=== PATIENT | female | born 1965 | race Two or more races ===

== ENCOUNTER → 2018-01-07 | Outpatient (CLI) | payer BC ==
[~2018-01-07] MED LIST: CHOL20002 PO; CHOL40002 PO; CLOT100T PO; CYAN100072 PO; CYCL-259 PO; ERGO500040 PO; FLUC200T4 PO; GABA-826 PO; HYDR-3237 PO; HYDR-3307 PO; HYDROCHLOROTHIAZIDE PO; LOSARTAN/POTASSIUM PO; NAPR-685 PO; OXYC-302 PO; SENN1TAB67 PO; [UNRECOGNIZED DRUG - OTHER] PO
[2018-01-07 10:11] LABS: BASOPHILS # (AUTO) 0.02 x10^3/uL (0-0.1); BASOPHILS % (AUTO) 0 % (0-1); EOSINOPHILS # (AUTO) 0.07 x10^3/uL (0-0.4); EOSINOPHILS % (AUTO) 1 % (1-7); LYMPHOCYTES # (AUTO) 2.11 x10^3/uL (1-3.4); LYMPHOCYTES % (AUTO) 36 % (22-44); MD NO; MEAN CORPUSCULAR HGB CONC 33.8 g/dL (32.4-35.8); MEAN CORPUSCULAR VOLUME 97.6 fL (80-100); MEAN PLATELET VOLUME 9.1 fL (7.4-10.4); MONOCYTES % (AUTO) 5 % (2-9); NEUTROPHILS # (AUTO) 3.32 x10^3/uL (1.8-6.8); NEUTROPHILS % (AUTO) 57 % (42-75); PLATELET COUNT 248 x10^3/uL (130-400); RED BLOOD COUNT 4.01 x10^6/uL (3.82-5.3); RED CELL DISTRIBUTION WIDTH 13.3 % (9.6-15.2)
[2018-01-07 10:13] LABS: MICROSCOPIC NOT IND
[2018-01-07 10:15] LABS: CULTURE INDICATED? NO
[2018-01-07 10:24] LABS: ALANINE AMINOTRANSFERASE 19 U/L (12-78); ANION GAP 5 mmol/L (5-15); CALCIUM 8.2 mg/dL (8.5-10.1); CHLORIDE 107 mmol/L (98-107); CREATININE 0.64 mg/dL (0.55-1.02)
[2018-01-07 10:26] LABS: ALKALINE PHOSPHATASE 61 U/L (45-117); BILIRUBIN,TOTAL 0.3 mg/dL (0.2-1.0); TOTAL PROTEIN 7.5 g/dL (6.4-8.2)
[2018-01-07 10:28] LABS: PROTHROMBIN TIME 10.3 Seconds (9.6-11.5)
== END | disposition home or self-care (01) ==
LOC: STAR 09:16
PROVIDERS: ATTEND Neurological Surgery
DX: Z01.818 Encounter for other preprocedural examination (principal); M48.062 Spinal stenosis, lumbar region with neurogenic claudication
CPT/HCPCS: 36415; 71046; 80053; 81003; 85025; 85610; 85730; 93005

== ENCOUNTER 2018-01-20 05:42 | Inpatient (IN) | payer BC ==
[~2018-01-20] VITALS: Ht 152.4 cm; Wt 56.7 kg
[~2018-01-20 05:42] MED LIST changes: -CHOL20002 PO; +CHOL200052 PO
[2018-01-20] MEDS ORDERED: LACTATED RINGERS 1,000 ML IV SCH (06:07)
[2018-01-20] MEDS ORDERED: GABAPENTIN 300 MG CAPSULE PO ONE (07:00)
[2018-01-20] MEDS ORDERED: ACETAMINOPHEN 500 MG TABLET PO ONE (07:00)
[2018-01-20] MEDS ORDERED: BACITRACIN 50,000 UNIT ONE (07:02)
[2018-01-20] MEDS ORDERED: THROMBIN 5,000 UNIT VIAL TP ONE (07:02)
[2018-01-20] MEDS ORDERED: BUPIVACAINE/PF-EPI 0.25% 1:200K ONE (07:02)
[2018-01-20] MEDS ORDERED: FENTANYL PF 250 MCG/5ML ONE (07:06)
[2018-01-20] MEDS ORDERED: DEXAMETHASONE 4 MG/ML, 1ML ONE (08:27)
[2018-01-20] MEDS ORDERED: CEFAZOLIN 1,000 MG ONE (08:27)
[2018-01-20] MEDS ORDERED: SUCCINYLCHOLINE 20 MG/ML, 10ML ONE (08:27)
[2018-01-20] MEDS ORDERED: PROPOFOL 10 MG/ML, 20ML ONE (08:27)
[2018-01-20] MEDS ORDERED: ROCURONIUM 10MG/ML,5ML ONE (08:27)
[2018-01-20] MEDS ORDERED: ONDANSETRON 2MG/ML, 2ML ONE (08:27)
[2018-01-20] MEDS ORDERED: NEOSTIGMINE 1 MG/ML, 10ML ONE (08:27)
[2018-01-20] MEDS ORDERED: GLYCOPYRROLATE 0.2MG/1ML, 5ML ONE (08:27)
[2018-01-20] MEDS ORDERED: LABETALOL 5MG/ML, 20ML IV PRN (09:00)
[2018-01-20] MEDS ORDERED: EPHEDRINE 50 MG/ML, 1ML IM PRN (09:00)
[2018-01-20] MEDS ORDERED: PROCHLORPERAZINE 5 MG/ML, 2ML IV PRN (09:00)
[2018-01-20] MEDS ORDERED: MEPERIDINE/PF 25MG/0.5ML IVPush PRN (09:00)
[2018-01-20] MEDS ORDERED: DIPHENHYDRAMINE 50 MG/ML, 1ML IVPush PRN ×2 (09:00→09:30)
[2018-01-20] MEDS ORDERED: OXYcodone 5 MG/5 ML ORAL.SOL UDC ONE (09:14)
[2018-01-20] MEDS ORDERED: FENTANYL PF 100 MCG/2ML ONE (09:14)
[2018-01-20] MEDS: FENTANYL PF 100 MCG/2ML IV PRN ×2 (09:16→09:21)
[2018-01-20] MEDS ORDERED: PHARMACY MAY ADJ FOR RENAL FX MC PRN (09:30)
[2018-01-20] MEDS ORDERED: BISACODYL 10 MG SUPP PR PRN (09:30)
[2018-01-20] MEDS ORDERED: PROMETHAZINE 25 MG/ML, 1ML IM PRN (09:30)
[2018-01-20] MEDS ORDERED: ONDANSETRON 2MG/ML, 2ML IVPush PRN (09:30)
[2018-01-20] MEDS ORDERED: MAGNESIUM HYDROXIDE 8%, 30ML UDC PO PRN (09:30)
[2018-01-20] MEDS ORDERED: HYDROcodone/APAP 10/325 MG TABLET PO PRN (09:30)
[2018-01-20] MEDS: OXYcodone 5 MG/5 ML ORAL.SOL UDC PO PRN ×3 (09:31→17:45)
[2018-01-20] MEDS ORDERED: CYCLOBENZAPRINE 10 MG TABLET ONE (09:34)
[2018-01-20] MEDS ORDERED: HYDROmorphone 2 MG/ML, 1ML ONE (09:35)
[2018-01-20] MEDS: CYCLOBENZAPRINE 10 MG TABLET PO PRN ×2 (09:37→23:44)
[2018-01-20] MEDS: HYDROmorphone 1 MG/ML, 1ML IV PRN ×4 (09:38→10:06)
[2018-01-20] MEDS ORDERED: CEFAZOLIN PMX 1GM/50ML 50 ML IVPB SCH (11:00)
[2018-01-20] MEDS: NS + 20MEQ KCL 1,000 ML IV SCH (12:42)
[2018-01-20 14:00] VITALS: BP 120/69
[2018-01-20] MEDS: CEFAZOLIN PMX 1GM/50ML 50 ML IVPB SCH (17:45)
[2018-01-20 19:29] VITALS: BP 111/64
[2018-01-20] MEDS: SODIUM CHLORIDE FLUSH 10ML SYR IVF SCH (20:51)
[2018-01-21 00:04] VITALS: BP 101/58
[2018-01-21] MEDS: CEFAZOLIN PMX 1GM/50ML 50 ML IVPB SCH (00:18)
[2018-01-21] MEDS: NS + 20MEQ KCL 1,000 ML IV SCH ×2 (01:57→15:35)
[2018-01-21 04:18] VITALS: BP 115/71
[2018-01-21 07:47] VITALS: BP 91/51
[2018-01-21] MEDS: SODIUM CHLORIDE FLUSH 10ML SYR IVF SCH ×2 (09:00→21:00)
[2018-01-21] MEDS: SENNA/DOCUSATE TABLET PO SCH (09:04)
[2018-01-21] MEDS: OXYcodone/APAP 10/325MG TABLET PO PRN ×4 (09:04→23:25)
[2018-01-21 13:45] VITALS: BP 89/50
[2018-01-21 18:00] VITALS: BP 87/50
[2018-01-21] MEDS: CYCLOBENZAPRINE 10 MG TABLET PO PRN (18:35)
[2018-01-21 18:55] VITALS: BP 107/63
[2018-01-21] MEDS: MEPERIDINE/PF 100 MG/ML IM PRN ×3 (20:29→21:33)
[2018-01-22 02:07] VITALS: BP 100/63
[2018-01-22] MEDS: MEPERIDINE/PF 100 MG/ML IM PRN (02:14)
[2018-01-22] MEDS: NS + 20MEQ KCL 1,000 ML IV SCH (03:27)
[2018-01-22] MEDS: CYCLOBENZAPRINE 10 MG TABLET PO PRN ×2 (04:15→12:58)
[2018-01-22 07:32] VITALS: BP 106/69
[2018-01-22] MEDS: SENNA/DOCUSATE TABLET PO SCH (07:43)
[2018-01-22] MEDS: OXYcodone/APAP 10/325MG TABLET PO PRN ×3 (07:43→16:23)
[2018-01-22] MEDS: SODIUM CHLORIDE FLUSH 10ML SYR IVF SCH (07:44)
[2018-01-22] MEDS ORDERED: KETOROLAC 30 MG/1 ML IVPush SCH (09:00)
[2018-01-22 13:42] VITALS: BP 84/53
[2018-01-22 15:16] VITALS: BP 115/65
[2018-01-22] MEDS ORDERED: OXYC-307 PO (16:36)
[2018-01-22] MEDS ORDERED: CYCL5TAB PO (16:36)
[2018-01-22] MEDS ORDERED: POLY119P4 PO (16:38)
== END 2018-01-22 17:03 | disposition home or self-care (01) | DRG 517 ==
LOC: OUT 05:42 → ORIP 09:05 → OBSVTOIN 09:05 → 4NOR 10:32 → DCLOUNGE 01-22 16:40
PROVIDERS: ADMIT Neurological Surgery; ATTEND Neurological Surgery
PROC: 01NR0ZZ Release Sacral Nerve, Open Approach (ICD-10-PCS; 2018-01-20)
PROC: 01NB0ZZ Release Lumbar Nerve, Open Approach (ICD-10-PCS; principal; 2018-01-20 07:30)
DX: M48.061 Spinal stenosis, lumbar region without neurogenic claudication (principal); Z88.6 Allergy status to analgesic agent
CPT/HCPCS: 72100; J3490; G0378; J0690; J1100; J1170; J1885; J2270; J2405; J2704; J2710; J3010; J3480; J0330; J2175; J7120